=== PATIENT | male | born 1950 | race Caucasian/White ===

== ENCOUNTER 2019-06-19 13:25 | Inpatient (IN) ==
[2019-06-19] MEDS ORDERED: ACETAMINOPHEN 325 MG/10.15 ML UDCUP PO PRN (15:56)
[2019-06-19] MEDS ORDERED: ALBUTEROL 2.5 MG/3 ML NEB RESP TX PRN (15:58)
[2019-06-19] MEDS: DEXTROSE 5% LACTATED RINGERS 1,000 ML IV SCH (16:27)
[2019-06-19 17:46] LABS: Basophils % 0.5 % (0.0-0.8); Eosinophils # 0.4 10*3/uL (0.0-0.87); Hematocrit 43.2 VOL% (42.0-52.0); Immature Granulocytes % 0.3 %; Immature Granulocytes Absolute 0.02 #; Lymphocytes # 1.2 10*3/uL (1.4-4.0); Lymphocytes % 20.8 % (21.2-54.2); Mean Corpuscular HGB Conc 32.4 GM/DL (32-36); Mean Corpuscular Volume 90.2 FL (87-102); Mean Platelet Volume 11.4 FL (9.6-12.0); Monocytes % 9.4 % (1.7-12.7); Platelet Count 197 T/CUMM (130-400); Red Blood Count 4.79 MC/CUMM (3.8-5.5); Red Cell Distribution Width 13.2 % (9.3-17.3)
[2019-06-19 18:15] LABS: Albumin 3.6 G/DL (3.4-5.0); Bilirubin,Total 0.5 MG/DL (0.2-1.0); Calcium 9.5 MG/DL (8.5-10.1); Osmolality,Calculated 277.4 MOS/KG (273-304); Total Protein 7.2 G/DL (6.4-8.3)
[2019-06-19] MEDS: FLUTICASONE 50 MCG NASAL SPRAY 16 GM BOTTLE BOTH NARES SCH (20:47)
[2019-06-19] MEDS: MONTELUKAST 10 MG TABLET PO SCH (20:47)
[2019-06-19] MEDS: BREO ELLIPTA INH SCH (20:50)
[2019-06-20] MEDS: DEXTROSE 5% LACTATED RINGERS 1,000 ML IV SCH ×4 (00:06→17:27)
[2019-06-20] MEDS: FAT EMULSION 20% 250 ML IV SCH (15:27)
[2019-06-20] MEDS: TRACE ELEMENTS (5) 1 ML, MULTIVITAMIN INJ 10 ML in AMINO ACIDS/DEXT/LYTES 5-15% 2,000 ML IV SCH (17:20)
[2019-06-20] MEDS: FLUTICASONE 50 MCG NASAL SPRAY 16 GM BOTTLE BOTH NARES SCH (22:52)
[2019-06-20] MEDS: MONTELUKAST 10 MG TABLET PO SCH (22:53)
[2019-06-20] MEDS: BREO ELLIPTA INH SCH (22:53)
[2019-06-21 06:16] LABS: Calcium 8.5 MG/DL (8.5-10.1); Osmolality,Calculated 280.1 MOS/KG (273-304); Prealbumin 16.9 MG/DL (20-40)
[2019-06-21] MEDS ORDERED: TISSUE ADHESIVE 1 EACH APPLICATOR TOP ONE (06:43)
[2019-06-21] MEDS ORDERED: ALBUTEROL 2.5 MG/3 ML NEB RESP TX ONE (07:01)
[2019-06-21] MEDS ORDERED: MIDAZOLAM 2 MG/2 ML VIAL ONE (09:19)
[2019-06-21] MEDS ORDERED: SEVOFLURANE 1 UNIT/15 MINUTE INH ONE (09:19)
[2019-06-21] MEDS ORDERED: LIDOCAINE 2% 5 ML VIAL ONE (09:19)
[2019-06-21] MEDS ORDERED: fentaNYL 100 MCG/2 ML VIAL ONE ×2 (09:19)
[2019-06-21] MEDS ORDERED: ePHEDrine 50 MG/ML AMP ONE (09:19)
[2019-06-21] MEDS ORDERED: PROPOFOL 200 MG/20 ML VIAL IV ONE (09:19)
[2019-06-21] MEDS ORDERED: SUCCINYLCHOLINE 200 MG/10 ML VIAL ONE (09:20)
[2019-06-21] MEDS ORDERED: ACETAMINOPHEN 1,000 MG/100 ML VIAL IV ONE (09:20)
[2019-06-21] MEDS ORDERED: PHENYLEPHRINE 1 MG/10 ML SYRINGE IV ONE (09:20)
[2019-06-21] MEDS ORDERED: ONDANSETRON 4 MG/2 ML VIAL ONE (09:20)
[2019-06-21] MEDS ORDERED: ROCURONIUM 100 MG/10 ML VIAL IV ONE (09:20)
[2019-06-21] MEDS: DEXTROSE 5% LACTATED RINGERS 1,000 ML IV SCH ×2 (09:43→17:56)
[2019-06-21] MEDS ORDERED: PHENOL 1.4% THROAT SPRAY 177 ML BOTTLE PO PRN (10:26)
[2019-06-21] MEDS: PANTOPRAZOLE 40 MG VIAL IV SCH (10:34)
[2019-06-21] MEDS: MORPHINE 4 MG/1 ML VIAL IV PRN ×4 (11:54→22:18)
[2019-06-21] MEDS: FAT EMULSION 20% 250 ML IV SCH (14:12)
[2019-06-21] MEDS: ceFAZolin 2,000 MG in PREMIX 1 EACH IV SCH ×2 (14:12→22:06)
[2019-06-21] MEDS: TRACE ELEMENTS (5) 1 ML, MULTIVITAMIN INJ 10 ML in AMINO ACIDS/DEXT/LYTES 5-15% 2,000 ML IV SCH (17:57)
[2019-06-21] MEDS: FLUTICASONE 50 MCG NASAL SPRAY 16 GM BOTTLE BOTH NARES SCH ×2 (22:02→22:10)
[2019-06-21] MEDS: BREO ELLIPTA INH SCH ×2 (22:03→22:10)
[2019-06-21] MEDS: MONTELUKAST 10 MG TABLET PO SCH (22:06)
[2019-06-22] MEDS: MORPHINE 4 MG/1 ML VIAL IV PRN ×2 (01:37→06:52)
[2019-06-22] MEDS: DEXTROSE 5% LACTATED RINGERS 1,000 ML IV SCH ×4 (02:49→23:32)
[2019-06-22 05:11] LABS: Basophils % 0.1 % (0.0-0.8); Hematocrit 40.9 VOL% (42.0-52.0); Hemoglobin 13.3 GM/DL (14.0-18.0); Immature Granulocytes % 0.6 %; Immature Granulocytes Absolute 0.06 #; Lymphocytes # 0.9 10*3/uL (1.4-4.0); Lymphocytes % 8.3 % (21.2-54.2); Mean Corpuscular HGB Conc 32.5 GM/DL (32-36); Mean Corpuscular Volume 91.3 FL (87-102); Mean Platelet Volume 11.8 FL (9.6-12.0); Monocytes % 8.8 % (1.7-12.7); Neutrophils % 82.2 % (38.7-73.9); Platelet Count 162 T/CUMM (130-400); Red Blood Count 4.48 MC/CUMM (3.8-5.5); Red Cell Distribution Width 13.2 % (9.3-17.3); White Blood Count 10.6 T/CUMM (4-12)
[2019-06-22] MEDS: ENOXAPARIN 40 MG/0.4 ML SYRINGE SUBCUT SCH (05:36)
[2019-06-22 06:18] LABS: Bilirubin,Total 0.5 MG/DL (0.2-1.0); Calcium 8.3 MG/DL (8.5-10.1); Osmolality,Calculated 277.4 MOS/KG (273-304); Total Protein 6.3 G/DL (6.4-8.3)
[2019-06-22] MEDS: PANTOPRAZOLE 40 MG VIAL IV SCH (08:56)
[2019-06-22] MEDS ORDERED: KETOROLAC 30 MG/1 ML VIAL IV ONE (09:50)
[2019-06-22] MEDS ORDERED: BENZONATATE 100 MG CAPSULE PO ONE (10:01)
[2019-06-22] MEDS: ONDANSETRON 4 MG/2 ML VIAL IV PRN ×3 (10:04→20:36)
[2019-06-22] MEDS: HYDROmorphone 2 MG/1 ML VIAL IV PRN ×4 (12:13→23:22)
[2019-06-22] MEDS: FAT EMULSION 20% 250 ML IV SCH (13:27)
[2019-06-22] MEDS: BENZONATATE 100 MG CAPSULE PO SCH ×2 (14:50→20:26)
[2019-06-22] MEDS: KETOROLAC 15 MG/1 ML VIAL IV SCH ×2 (16:08→21:54)
[2019-06-22] MEDS: TRACE ELEMENTS (5) 1 ML, MULTIVITAMIN INJ 10 ML in AMINO ACIDS/DEXT/LYTES 5-15% 2,000 ML IV SCH (16:09)
[2019-06-22] MEDS: MONTELUKAST 10 MG TABLET PO SCH (20:26)
[2019-06-22] MEDS: BREO ELLIPTA INH SCH (20:26)
[2019-06-22] MEDS: FLUTICASONE 50 MCG NASAL SPRAY 16 GM BOTTLE BOTH NARES SCH (20:26)
[2019-06-23] MEDS: ONDANSETRON 4 MG/2 ML VIAL IV PRN ×3 (03:47→16:32)
[2019-06-23] MEDS: HYDROmorphone 2 MG/1 ML VIAL IV PRN ×3 (03:47→16:36)
[2019-06-23] MEDS: ENOXAPARIN 40 MG/0.4 ML SYRINGE SUBCUT SCH (06:00)
[2019-06-23] MEDS: KETOROLAC 15 MG/1 ML VIAL IV SCH ×4 (06:00→21:15)
[2019-06-23] MEDS: PANTOPRAZOLE 40 MG VIAL IV SCH (10:58)
[2019-06-23] MEDS: BENZONATATE 100 MG CAPSULE PO SCH ×3 (10:58→21:14)
[2019-06-23] MEDS ORDERED: FAT EMULSION 20% 250 ML IV SCH (14:00)
[2019-06-23] MEDS: FAT EMULSION 20% 250 ML IV SCH (14:59)
[2019-06-23] MEDS: DEXTROSE 5% LACTATED RINGERS 1,000 ML IV SCH (16:34)
[2019-06-23] MEDS: TRACE ELEMENTS (5) 1 ML, MULTIVITAMIN INJ 10 ML in AMINO ACIDS/DEXT/LYTES 5-15% 2,000 ML IV SCH (16:40)
[2019-06-23] MEDS: FLUTICASONE 50 MCG NASAL SPRAY 16 GM BOTTLE BOTH NARES SCH (21:12)
[2019-06-23] MEDS: MONTELUKAST 10 MG TABLET PO SCH (21:14)
[2019-06-23] MEDS: BREO ELLIPTA INH SCH (21:14)
[2019-06-24] MEDS: HYDROmorphone 2 MG/1 ML VIAL IV PRN ×3 (01:21→21:44)
[2019-06-24] MEDS: KETOROLAC 15 MG/1 ML VIAL IV SCH ×4 (04:43→21:44)
[2019-06-24 06:02] LABS: Albumin 2.4 G/DL (3.4-5.0); Bilirubin,Total 0.7 MG/DL (0.2-1.0); Calcium 8.1 MG/DL (8.5-10.1); Osmolality,Calculated 283.3 MOS/KG (273-304); Total Protein 5.7 G/DL (6.4-8.3)
[2019-06-24] MEDS: ENOXAPARIN 40 MG/0.4 ML SYRINGE SUBCUT SCH (06:13)
[2019-06-24] MEDS: PANTOPRAZOLE 40 MG VIAL IV SCH (09:57)
[2019-06-24] MEDS: BENZONATATE 100 MG CAPSULE PO SCH ×3 (10:04→21:43)
[2019-06-24] MEDS: TRACE ELEMENTS (5) 1 ML, MULTIVITAMIN INJ 10 ML in AMINO ACIDS/DEXT/LYTES 5-15% 2,000 ML IV SCH (10:56)
[2019-06-24] MEDS: FAT EMULSION 20% 250 ML IV SCH (13:22)
[2019-06-24] MEDS: ONDANSETRON 4 MG/2 ML VIAL IV PRN (13:23)
[2019-06-24] MEDS: FLUTICASONE 50 MCG NASAL SPRAY 16 GM BOTTLE BOTH NARES SCH (21:43)
[2019-06-24] MEDS: BREO ELLIPTA INH SCH (21:43)
[2019-06-24] MEDS: MONTELUKAST 10 MG TABLET PO SCH (21:44)
[2019-06-25] MEDS: TRACE ELEMENTS (5) 1 ML, MULTIVITAMIN INJ 10 ML in AMINO ACIDS/DEXT/LYTES 5-15% 2,000 ML IV SCH (05:39)
[2019-06-25] MEDS: KETOROLAC 15 MG/1 ML VIAL IV SCH ×4 (05:41→21:38)
[2019-06-25] MEDS: ENOXAPARIN 40 MG/0.4 ML SYRINGE SUBCUT SCH (05:41)
[2019-06-25] MEDS: BENZONATATE 100 MG CAPSULE PO SCH ×3 (09:56→21:39)
[2019-06-25] MEDS: PANTOPRAZOLE 40 MG VIAL IV SCH (09:56)
[2019-06-25] MEDS: FAT EMULSION 20% 250 ML IV SCH (14:32)
[2019-06-25] MEDS: ONDANSETRON 4 MG/2 ML VIAL IV PRN (21:38)
[2019-06-25] MEDS: MONTELUKAST 10 MG TABLET PO SCH (21:39)
[2019-06-25] MEDS: BREO ELLIPTA INH SCH (21:39)
[2019-06-25] MEDS: FLUTICASONE 50 MCG NASAL SPRAY 16 GM BOTTLE BOTH NARES SCH (21:40)
[2019-06-26] MEDS: TRACE ELEMENTS (5) 1 ML, MULTIVITAMIN INJ 10 ML in AMINO ACIDS/DEXT/LYTES 5-15% 2,000 ML IV SCH ×2 (00:33→18:19)
[2019-06-26] MEDS: HYDROmorphone 2 MG/1 ML VIAL IV PRN (03:35)
[2019-06-26] MEDS: KETOROLAC 15 MG/1 ML VIAL IV SCH ×4 (03:37→21:39)
[2019-06-26] MEDS: ENOXAPARIN 40 MG/0.4 ML SYRINGE SUBCUT SCH (06:16)
[2019-06-26 07:38] LABS: Calcium 8.2 MG/DL (8.5-10.1); Osmolality,Calculated 287.3 MOS/KG (273-304); Prealbumin 21.8 MG/DL (20-40)
[2019-06-26] MEDS: PANTOPRAZOLE 40 MG VIAL IV SCH (08:26)
[2019-06-26] MEDS: ONDANSETRON 4 MG/2 ML VIAL IV PRN ×2 (08:27→16:46)
[2019-06-26] MEDS: BENZONATATE 100 MG CAPSULE PO SCH ×3 (09:29→21:39)
[2019-06-26] MEDS: FAT EMULSION 20% 250 ML IV SCH (14:07)
[2019-06-26] MEDS: MONTELUKAST 10 MG TABLET PO SCH (21:39)
[2019-06-26] MEDS: FLUTICASONE 50 MCG NASAL SPRAY 16 GM BOTTLE BOTH NARES SCH (21:40)
[2019-06-26] MEDS: BREO ELLIPTA INH SCH (21:40)
[2019-06-27] MEDS: KETOROLAC 15 MG/1 ML VIAL IV SCH ×2 (04:47→09:16)
[2019-06-27] MEDS: ENOXAPARIN 40 MG/0.4 ML SYRINGE SUBCUT SCH (06:23)
[2019-06-27 07:54] LABS: Basophils % 0.5 % (0.0-0.8); Eosinophils # 0.2 10*3/uL (0.0-0.87); Eosinophils % 3.2 % (0.00-10.9); Hemoglobin 9.9 GM/DL (14.0-18.0); Immature Granulocytes % 0.6 %; Immature Granulocytes Absolute 0.04 #; Lymphocytes # 0.8 10*3/uL (1.4-4.0); Mean Corpuscular HGB Conc 29.1 GM/DL (32-36); Mean Platelet Volume 12.9 FL (9.6-12.0); Monocytes % 8.4 % (1.7-12.7); NRBC # 0.03 10*3/uL; Neutrophils % 74.3 % (38.7-73.9); Platelet Count 127 T/CUMM (130-400); Red Cell Distribution Width 14.4 % (9.3-17.3); White Blood Count 6.3 T/CUMM (4-12)
[2019-06-27 08:05] LABS: Hypochromasia 1+; Ovalocytes Slight; Platelet Estimate Normal
[2019-06-27] MEDS: PANTOPRAZOLE 40 MG VIAL IV SCH (08:51)
[2019-06-27] MEDS: BENZONATATE 100 MG CAPSULE PO SCH (08:52)
[2019-06-27 12:36] VITALS: BP 133/65
[2019-06-27] MEDS: TRACE ELEMENTS (5) 1 ML, MULTIVITAMIN INJ 10 ML in AMINO ACIDS/DEXT/LYTES 5-15% 2,000 ML IV SCH (13:05)
== END 2019-06-27 14:25 | disposition home or self-care (01) | DRG 327 ==
LOC: N.5E 14:03
PROVIDERS: ADMIT Surgery; ATTEND Surgery

== ENCOUNTER 2020-03-09 10:34 | Observation (INO) ==
[2020-03-09] MEDS ORDERED: ONDANSETRON 4 MG/2 ML VIAL IV PRN (12:49)
[2020-03-09] MEDS ORDERED: DEXTROSE 50% 25 GM/50 ML VIAL IV PRN (12:49)
[2020-03-09] MEDS ORDERED: hydrALAZINE 20 MG/1 ML VIAL IV PRN (12:49)
[2020-03-09] MEDS ORDERED: DOCUSATE SODIUM 100 MG CAPSULE PO PRN (12:49)
[2020-03-09] MEDS ORDERED: GLUCAGON 1 MG VIAL IM PRN (12:49)
[2020-03-09] MEDS ORDERED: MORPHINE 4 MG/1 ML VIAL IV PRN (12:49)
[2020-03-09 13:20] LABS: Basophils % 0.1 % (0.0-0.8); Eosinophils % 0.1 % (0.00-10.9); Hematocrit 34.8 VOL% (42.0-52.0); Immature Granulocytes % 0.6 %; Immature Granulocytes Absolute 0.06 #; Lymphocytes # 0.9 10*3/uL (1.4-4.0); Mean Corpuscular HGB Conc 31.6 GM/DL (32-36); Mean Corpuscular Volume 89.9 FL (87-102); Mean Platelet Volume 10.4 FL (9.6-12.0); Monocytes % 2.5 % (1.7-12.7); Neutrophils % 87.7 % (38.7-73.9); Platelet Count 181 T/CUMM (130-400); Red Blood Count 3.87 MC/CUMM (3.8-5.5); Red Cell Distribution Width 15.9 % (9.3-17.3); White Blood Count 9.5 T/CUMM (4-12)
[2020-03-09] MEDS ORDERED: SILDENAFIL 100 MG PO PRN (13:41)
[2020-03-09] MEDS ORDERED: CAPECITABINE PO SCH (13:45)
[2020-03-09 13:48] LABS: Albumin 2.8 G/DL (3.4-5.0); Bilirubin,Total 0.8 MG/DL (0.2-1.0); Calcium 8.1 MG/DL (8.5-10.1); Total Protein 6.7 G/DL (6.4-8.3)
[2020-03-09 14:00] LABS: Risk Ratio 2.27; Thyroid Stimulating Hormone 0.955 uIU/ml (0.358-3.74); VLDL CHOLESTEROL 19.4 MG/DL
[2020-03-09] MEDS ORDERED: MAGNESIUM SULF RIDER 2 GM in PREMIX 1 EACH IV ONE (14:04)
[2020-03-09] MEDS: ALBUTEROL 2.5 MG/3 ML NEB RESP TX SCH ×2 (14:14→19:10)
[2020-03-09] MEDS ORDERED: dilTIAZem Drip 125 MG/125 ML PREMIX IV SCH (14:30)
[2020-03-09] MEDS ORDERED: ALBUTEROL 2.5 MG/3 ML NEB RESP TX PRN (15:00)
[2020-03-09] MEDS ORDERED: AMIODARONE INJ 150 MG in DEXTROSE 5% 100 ML IV ONE (15:01)
[2020-03-09] MEDS ORDERED: AMIODARONE INJ 450 MG in DEXTROSE 5% 241 ML IV SCH (15:30)
[2020-03-09] MEDS: LIPASE PROTEASE AMYLASE PO SCH (18:15)
[2020-03-09 20:01] LABS: Apearance,Urine CLEAR (Clear); Bilirubin,Urine Negative (Negative); Blood, Urine Negative (Negative); Glucose,Urine (UA) Negative (Negative); Ketones,Urine Negative (Negative); Mucus,Urine Occasional /LPF (Occasional); Nitrite,Urine Negative (Negative); Protein,Urine Negative; RBC,Urine 1 /HPF (0-4); Urine Color Yellow (Yellow); Urine Specific Gravity 1.011 (1.001-1.035); Urine Urobilinogen < 2.0 EU/DL (0.2-1.0); WBC,Urine <1 /HPF (0-6)
[2020-03-09] MEDS ORDERED: ENOXAPARIN 40 MG/0.4 ML SYRINGE SUBCUT SCH (21:00)
[2020-03-09] MEDS: FLUTICASONE 50 MCG NASAL SPRAY 16 GM BOTTLE BOTH NARES SCH (21:13)
[2020-03-09] MEDS: APIXABAN 5 MG TABLET PO SCH (21:13)
[2020-03-09] MEDS: Fluticasone Furoate-Vilanterol [Breo Ellipta] 1 inh INH SCH (21:14)
[2020-03-09] MEDS: AMIODARONE INJ 450 MG in DEXTROSE 5% 241 ML IV SCH (21:49)
[2020-03-10] MEDS: ALBUTEROL 2.5 MG/3 ML NEB RESP TX SCH ×4 (00:44→19:13)
[2020-03-10] MEDS: ACETAMINOPHEN 325 MG TABLET PO PRN ×2 (01:40→16:02)
[2020-03-10 05:23] LABS: Basophils % 0.3 % (0.0-0.8); Eosinophils % 0.3 % (0.00-10.9); Hematocrit 35.4 VOL% (42.0-52.0); Hemoglobin 11.3 GM/DL (14.0-18.0); Immature Granulocytes % 0.4 %; Immature Granulocytes Absolute 0.03 #; Lymphocytes % 15.1 % (21.2-54.2); Mean Corpuscular HGB Conc 31.9 GM/DL (32-36); Mean Corpuscular Volume 88.7 FL (87-102); Mean Platelet Volume 10.6 FL (9.6-12.0); Monocytes % 1.8 % (1.7-12.7); Neutrophils % 82.1 % (38.7-73.9); Platelet Count 159 T/CUMM (130-400); Red Blood Count 3.99 MC/CUMM (3.8-5.5); Red Cell Distribution Width 15.6 % (9.3-17.3); White Blood Count 6.7 T/CUMM (4-12)
[2020-03-10 05:41] LABS: Calcium 8.2 MG/DL (8.5-10.1); Osmolality,Calculated 275.7 MOS/KG (273-304)
[2020-03-10] MEDS: LIPASE PROTEASE AMYLASE PO SCH ×3 (08:45→17:29)
[2020-03-10] MEDS: MONTELUKAST 10 MG TABLET PO SCH (08:45)
[2020-03-10] MEDS: MULTIVITAMIN (CENTRUM) TABLET PO SCH (08:45)
[2020-03-10] MEDS: AMIODARONE 200 MG TABLET PO SCH ×2 (08:46→20:09)
[2020-03-10] MEDS: PANTOPRAZOLE 40 MG TABLET PO SCH (08:46)
[2020-03-10] MEDS: APIXABAN 5 MG TABLET PO SCH ×2 (08:46→20:11)
[2020-03-10] MEDS: AMIODARONE INJ 450 MG in DEXTROSE 5% 241 ML IV SCH (13:53)
[2020-03-10] MEDS ORDERED: POTASSIUM CHLORIDE 20 MEQ TABLET PO ONE (14:21)
[2020-03-10] MEDS: FLUTICASONE 50 MCG NASAL SPRAY 16 GM BOTTLE BOTH NARES SCH (20:08)
[2020-03-10] MEDS: Fluticasone Furoate-Vilanterol [Breo Ellipta] 1 inh INH SCH (20:11)
[2020-03-11] MEDS: ALBUTEROL 2.5 MG/3 ML NEB RESP TX SCH ×2 (00:39→07:11)
[2020-03-11 05:42] LABS: Basophils % 0.3 % (0.0-0.8); Eosinophils # 0.1 10*3/uL (0.0-0.87); Eosinophils % 1.7 % (0.00-10.9); Hematocrit 31.4 VOL% (42.0-52.0); Hemoglobin 9.8 GM/DL (14.0-18.0); Immature Granulocytes % 0.4 %; Immature Granulocytes Absolute 0.03 #; Lymphocytes # 1.2 10*3/uL (1.4-4.0); Lymphocytes % 16.7 % (21.2-54.2); Mean Corpuscular HGB Conc 31.2 GM/DL (32-36); Mean Platelet Volume 10.6 FL (9.6-12.0); Monocytes % 1.3 % (1.7-12.7); Neutrophils % 79.6 % (38.7-73.9); Platelet Count 168 T/CUMM (130-400); Red Blood Count 3.49 MC/CUMM (3.8-5.5); Red Cell Distribution Width 15.6 % (9.3-17.3); White Blood Count 7.1 T/CUMM (4-12)
[2020-03-11 06:19] LABS: Calcium 8.3 MG/DL (8.5-10.1); Osmolality,Calculated 277.5 MOS/KG (273-304)
[2020-03-11] MEDS: MULTIVITAMIN (CENTRUM) TABLET PO SCH (09:40)
[2020-03-11] MEDS: PANTOPRAZOLE 40 MG TABLET PO SCH (09:40)
[2020-03-11] MEDS: MONTELUKAST 10 MG TABLET PO SCH (09:40)
[2020-03-11] MEDS: LIPASE PROTEASE AMYLASE PO SCH ×2 (09:40→12:15)
[2020-03-11] MEDS: APIXABAN 5 MG TABLET PO SCH (09:40)
[2020-03-11] MEDS: AMIODARONE 200 MG TABLET PO SCH (09:40)
[2020-03-11 10:44] VITALS: BP 128/78
== END 2020-03-11 12:20 | disposition home or self-care (01) ==
LOC: N.TELES → SUATTDRO 12:27
PROVIDERS: ADMIT Internal Medicine; ATTEND Family Medicine